=== PATIENT | male | born 2000 | race Caucasian/White ===

== ENCOUNTER 2018-07-22 23:15 | Emergency (ER) | payer OTHER ==
--- NOTE | 2018-07-23 00:04 | ED ---
Psych HPI - General Source: patient, RN notes reviewed, old records reviewed Mode of arrival: ambulatory <Krysta Kennedy - Last Filed: 07/23/18 03:59> <Beth Martinez P - Last Filed: 07/23/18 04:24> - General Chief Complaint: Psychiatric Symptoms Stated Complaint: Mental Health Time Seen by Provider: 07/22/18 23:20 - History of Present Illness Initial Comments: Patient is a 18-year-old male who presents emergency department today with his mother with chief complaint of inability to handle life. He reports that he is having a hard time dealing with the stress of his new job. Patient reports he feels like he has no hope for has no motivation for living. Here reports that each day we'll always been negative day. Patient's mother reports he has history of defiant disorder. Patient reports that he recently started a job at [employer]. He states that he seems to not be able to handle distress and minimal later shut down. He reports he isn't sleeping well. He denies any change in appetite. He reports a history of high blood pressure. He denies any active suicidal thoughts or intent. He denies any homicidal ideation or auditory or visual hallucinations. (Krysta Kennedy) - Related Data Home Medications Medication Instructions Recorded Confirmed Losartan [Cozaar] 25 mg PO DAILY 07/22/18 07/22/18 Allergies Allergy/AdvReac Type Severity Reaction Status Date / Time azithromycin [From Zithromax] Allergy Rash/Hives Verified 07/22/18 23:38 Review of Systems ROS Other: All systems not noted in ROS Statement are negative. <Krysta Kennedy - Last Filed: 07/23/18 03:59> ROS Other: All systems not noted in ROS Statement are negative. <Beth Martinez P - Last Filed: 07/23/18 04:24> ROS Statement: Those systems with pertinent positive or pertinent negative responses have been documented in the HPI. Past Medical History Past Medical History: Hypertension History of Any Multi-Drug Resistant Organisms: None Reported Past Surgical History: No Surgical Hx Reported Past Psychological History: Depression Smoking Status: Never smoker Past Alcohol Use History: None Reported Past Drug Use History: None Reported <Krysta Kennedy - Last Filed: 07/23/18 03:59> General Exam Limitations: no limitations General appearance: alert, in no apparent distress Head exam: Present: atraumatic Eye exam: Present: normal appearance, PERRL, EOMI. Absent: scleral icterus, conjunctival injection, periorbital swelling ENT exam: Present: normal exam, mucous membranes moist Neck exam: Present: normal inspection. Absent: tenderness, meningismus, lymphadenopathy Respiratory exam: Present: normal lung sounds bilaterally. Absent: respiratory distress, wheezes, rales, rhonchi, stridor Cardiovascular Exam: Present: regular rate, normal rhythm, normal heart sounds. Absent: systolic murmur, diastolic murmur, rubs, gallop, clicks GI/Abdominal exam: Present: soft, normal bowel sounds. Absent: distended, tenderness, guarding, rebound, rigid Extremities exam: Present: normal inspection, full ROM, normal capillary refill. Absent: tenderness, pedal edema, joint swelling, calf tenderness Back exam: Present: normal inspection Neurological exam: Present: alert, oriented X3, CN II-XII intact Psychiatric exam: Present: normal mood, depressed. Absent: normal affect (flat) Skin exam: Present: warm <Krysta Kennedy - Last Filed: 07/23/18 03:59> <Beth Martinez - Last Filed: 07/23/18 04:24> - General Exam Comments Initial Comments: Patient is a 18-year-old male. Alert and oriented. No acute distress. ( Krysta Kennedy) Vital Signs 07/22/18 07/23/18 23:18 03:28 Temperature 97.9 F 97.6 F Pulse Rate 87 78 Respiratory 16 18 Rate Blood Pressure 122/64 139/71 O2 Sat by Pulse 97 97 Oximetry Medical Decision Making <Krysta Kennedy - Last Filed: 07/23/18 03:59> <Beth Martinez - Last Filed: 07/23/18 04:24> - Medical Decision Making Patient is a 18-year-old male present to his pharmacy of his marked complaint of anxiety and depression. He denies any suicidal thoughts. Patient was seen by a EPS. They do feel the Patient is safe for discharge and given referral for outpatient treatment. Patient agrees to follow up with outpatient services and discussed return parameters. Patient's family Patient agreed treatment plan will comply. (Krysta Kennedy) I was available for consultation in the emergency department. The history and physical exam were done by the Midlevel Provider. Medical decision making was done by the Midlevel Provider. The Midlevel Provider did not contact me for this patient's care. I was not directly involved in this patient's care. (Beth Martinez) - Lab Data Lab Results 07/23/18 Range/Units 00:38 Urine Opiates Screen Not Detected (NotDetected) Ur Oxycodone Screen Not Detected (NotDetected) Urine Methadone Screen Not Detected (NotDetected) Ur Propoxyphene Screen Not Detected (NotDetected) Ur Barbiturates Screen Not Detected (NotDetected) U Tricyclic Antidepress Not Detected (NotDetected) Ur Phencyclidine Scrn Not Detected (NotDetected) Ur Amphetamines Screen Not Detected (NotDetected) U Methamphetamines Scrn Not Detected (NotDetected) U Benzodiazepines Scrn Not Detected (NotDetected) Urine Cocaine Screen Not Detected (NotDetected) U Marijuana (THC) Screen Not Detected (NotDetected) Disposition Is patient prescribed a controlled substance at d/c from ED?: No Time of Disposition: 03:13 <Krysta Kennedy - Last Filed: 07/23/18 03:59> <Beth Martinez - Last Filed: 07/23/18 04:24> Clinical Impression: Depression Disposition: HOME SELF-CARE Condition: Good Instructions: Depression (ED) Additional Instructions: Patient advised to follow-up with primary care provider. Follow-up with outpatient referrals. Return to emergency department if any alarming signs or symptoms occur. Referrals: Heather Taylor MD [Primary Care Provider] - 1-2 days
[2018-07-23 01:11] LABS: Amphetamine Screen,Urine Not Detected (NotDetected); Barbiturate Screen,Urine Not Detected (NotDetected); Benzodiazepines Screen,Urine Not Detected (NotDetected); Cocaine Screen,Urine Not Detected (NotDetected); Methadone Screen, Urine Not Detected (NotDetected); Opiate Screen,Urine Not Detected (NotDetected); Oxycodone Screen, Urine Not Detected (NotDetected); Phencyclidine Screen,Urine Not Detected (NotDetected); Tricyclic Antidepressant,Urine Not Detected (NotDetected); Urn Cannabinoid Scrn Not Detected (NotDetected)
[2018-07-23 03:29] VITALS: BP 139/71; PULSE 78; RESP 18; TEMP 97.6
== END 2018-07-23 03:29 | disposition home or self-care (01) ==
LOC: EC 23:15
DX: F32.9 Major depressive disorder, single episode, unspecified (principal); F43.9 Reaction to severe stress, unspecified; F41.9 Anxiety disorder, unspecified; I10 Essential (primary) hypertension; Z79.899 Other long term (current) drug therapy; Z88.1 Allergy status to other antibiotic agents
CPT/HCPCS: 80306; 82075; 99284

== ENCOUNTER 2020-08-11 21:19 | Emergency (ER) | payer OTHER ==
[2020-08-11 21:24] VITALS: TEMP 97.6
[2020-08-11] MEDS ORDERED: KETOROLAC 15 MG/ML 1 ML VIAL IVP STA (21:41)
[2020-08-11] MEDS ORDERED: SODIUM CHLORIDE 0.9% 1,000 ML IV STA (21:42)
--- NOTE | 2020-08-11 22:10 | XR ---
EXAMINATION TYPE: XR KUB DATE OF EXAM: 08/11/2020 COMPARISON: NONE HISTORY: Abdominal pain TECHNIQUE: 3 views FINDINGS: 3 views upright were obtained. There is no sign of intestinal obstruction or pneumoperitone um. Fecal pattern is normal. There are no pathologic calcifications over the kidneys. Lung bases are clear. IMPRESSION: Nonacute abdomen.
--- NOTE | 2020-08-11 22:21 | ED ---
General Adult HPI - General Chief complaint: Abdominal Pain Stated complaint: Abd Pain Time Seen by Provider: 08/11/20 21:31 Source: patient, RN notes reviewed Mode of arrival: ambulatory Limitations: no limitations - History of Present Illness Initial comments: 20-year-old male with a past medical history of hypertension, lactose intolerance presents to the emergency room for mid abdominal pain. Patient states this started yesterday. Patient states it is constant. It states it is a dull aching pain. Patient denies any right lower quadrant pain. Denies any nausea vomiting diarrhea. Denies any fevers or chills. He does report he drank some eggnog earlier this week and wonders if this is a flare of his lactose intolerance. Patient has no other complaints at this time including shortness of breath, chest pain, nausea or vomiting, headache, or visual changes. - Related Data Home Medications Medication Instructions Recorded Confirmed Losartan [Cozaar] 25 mg PO DAILY 07/22/18 07/22/18 Allergies Allergy/AdvReac Type Severity Reaction Status Date / Time azithromycin [From Zithromax] Allergy Rash/Hives Verified 07/22/18 23:38 Review of Systems ROS Statement: Those systems with pertinent positive or pertinent negative responses have been documented in the HPI. ROS Other: All systems not noted in ROS Statement are negative. Past Medical History Past Medical History: Hypertension Additional Past Medical History / Comment(s): lactose intolerance History of Any Multi-Drug Resistant Organisms: None Reported Past Surgical History: No Surgical Hx Reported Past Psychological History: Depression Smoking Status: Vaper Past Alcohol Use History: Occasional Past Drug Use History: None Reported General Exam Limitations: no limitations General appearance: alert, in no apparent distress Head exam: Present: atraumatic, normocephalic, normal inspection Eye exam: Present: normal appearance, PERRL, EOMI. Absent: scleral icterus, conjunctival injection, periorbital swelling ENT exam: Present: normal exam, mucous membranes moist Neck exam: Present: normal inspection, full ROM. Absent: tenderness, meningismus, lymphadenopathy Respiratory exam: Present: normal lung sounds bilaterally. Absent: respiratory distress, wheezes, rales, rhonchi, stridor Cardiovascular Exam: Present: regular rate, normal rhythm, normal heart sounds. Absent: systolic murmur, diastolic murmur, rubs, gallop, clicks GI/Abdominal exam: Present: soft, normal bowel sounds. Absent: distended, tenderness (No abdominal tenderness whatsoever), guarding, rebound, rigid Neurological exam: Present: alert Course Vital Signs 08/11/20 21:20 Temperature 97.6 F Pulse Rate 79 Respiratory 20 Rate Blood Pressure 142/84 O2 Sat by Pulse 97 Oximetry Medical Decision Making - Medical Decision Making Vitals are stable. CBC shows minimal leukocytosis. CMP is unremarkable. Urinalysis is negative. X-ray KUB shows a nonacute abdomen. Patient reevaluated, continues to have no abdominal tenderness whatsoever. Patient feels much better after Toradol. At this time I discussed this patient can be discharged home to follow up with primary care. However if he starts to have fevers or worsening abdominal pain he is to return to the emergency room. He is agreeable to this.I discussed this case with attending Dr. Liang who agrees with this assessment and treatment plan. - Lab Data Result diagrams: 08/11/20 22:19 08/11/20 22:19 Lab Results 08/11/20 08/11/20 08/11/20 Range/Units 22:19 22:19 22:19 WBC 12.4 H (3.8-10.6) k/uL RBC 5.33 (4.30-5.90) m/uL Hgb 16.7 (13.0-17.5) gm/dL Hct 48.6 (39.0-53.0) % MCV 91.3 (80.0-100.0) fL MCH 31.4 (25.0-35.0) pg MCHC 34.4 (31.0-37.0) g/dL RDW 12.5 (11.5-15.5) % Plt Count 348 (150-450) k/uL MPV 7.3 Neutrophils % 85 % Lymphocytes % 8 % Monocytes % 4 % Eosinophils % 2 % Basophils % 0 % Neutrophils # 10.5 H (1.3-7.7) k/uL Lymphocytes # 1.0 (1.0-4.8) k/uL Monocytes # 0.5 (0-1.0) k/uL Eosinophils # 0.3 (0-0.7) k/uL Basophils # 0.0 (0-0.2) k/uL Sodium 135 L (137-145) mmol/L Potassium 4.0 (3.5-5.1) mmol/L Chloride 103 (98-107) mmol/L Carbon Dioxide 25 (22-30) mmol/L Anion Gap 7 mmol/L BUN 6 L (9-20) mg/dL Creatinine 0.68 (0.66-1.25) mg/dL Est GFR (CKD-EPI)AfAm >90 (>60 ml/min/1.73 sqM) Est GFR (CKD-EPI)NonAf >90 (>60 ml/min/1.73 sqM) Glucose 125 H (74-99) mg/dL Calcium 9.3 (8.4-10.2) mg/dL Total Bilirubin 0.5 (0.2-1.3) mg/dL AST 22 (17-59) U/L ALT 24 (4-49) U/L Alkaline Phosphatase 80 (38-126) U/L Total Protein 7.1 (6.3-8.2) g/dL Albumin 4.0 (3.5-5.0) g/dL Amylase 53 (30-110) U/L Lipase 28 (23-300) U/L Urine Color Yellow Urine Appearance Clear (Clear) Urine pH 6.0 (5.0-8.0) Ur Specific [place] 1.029 (1.001-1.035) Urine Protein Trace H (Negative) Urine Glucose (UA) Negative (Negative) Urine Ketones Negative (Negative) Urine Blood Negative (Negative) Urine Nitrite Negative (Negative) Urine Bilirubin Negative (Negative) Urine Urobilinogen 2.0 (<2.0) mg/dL Ur Leukocyte Esterase Negative (Negative) Disposition Clinical Impression: Abdominal pain Disposition: HOME SELF-CARE Condition: Good Instructions (If sedation given, give patient instructions): Abdominal Pain (ED) Additional Instructions: Please take Motrin and Tylenol for pain. Please follow-up with your doctor in one to 2 days. Return to the emergency room for any worsening symptoms such as worsening pain or fevers. Is patient prescribed a controlled substance at d/c from ED?: No Referrals: Heather Taylor MD [Primary Care Provider] - 1-2 days Time of Disposition: 23:00
[2020-08-11 22:34] LABS: Appearance,Urine Clear (Clear); Bilirubin,Urine Negative (Negative); Blood,Urine Negative (Negative); Color,Urine Yellow; Glucose,Urine (UA) Negative (Negative); Ketones,Urine Negative (Negative); Leukocyte Esterase,Urine Negative (Negative); Nitrite,Urine Negative (Negative); Protein,Urine Trace (Negative); Specific Gravity,Urine 1.029 (1.001-1.035)
[2020-08-11 22:35] LABS: Basophils % (A) 0 %; Eosinophils # (A) 0.3 k/uL (0-0.7); Eosinophils % (A) 2 %; HCT 48.6 % (39.0-53.0); HGB 16.7 gm/dL (13.0-17.5); Lymphocytes % (A) 8 %; MCH 31.4 pg (25.0-35.0); MCHC 34.4 g/dL (31.0-37.0); MCV 91.3 fL (80.0-100.0); Mean Platelet Volume 7.3; Monocytes # (A) 0.5 k/uL (0-1.0); Monocytes % (A) 4 %; Neutrophils # (A) 10.5 k/uL (1.3-7.7); Neutrophils % (A) 85 %; Platelet Count 348 k/uL (150-450); RBC 5.33 m/uL (4.30-5.90); RDW 12.5 % (11.5-15.5); WBC 12.4 k/uL (3.8-10.6)
[2020-08-11 22:45] LABS: ALT 24 U/L (4-49); AST 22 U/L (17-59); African American GFR (CKD) >90 (>60 ml/min/1.73 sqM); Alkaline Phosphatase 80 U/L (38-126); Amylase 53 U/L (30-110); Anion Gap 7 mmol/L; Blood Urea Nitrogen 6 mg/dL (9-20); Calcium 9.3 mg/dL (8.4-10.2); Carbon Dioxide 25 mmol/L (22-30); Chloride 103 mmol/L (98-107); Glucose 125 mg/dL (74-99); Lipase 28 U/L (23-300); Non-African American GFR(CKD) >90 (>60 ml/min/1.73 sqM); Sodium 135 mmol/L (137-145); Total Bilirubin 0.5 mg/dL (0.2-1.3); Total Protein 7.1 g/dL (6.3-8.2)
[2020-08-11 23:14] VITALS: BP 141/72; PULSE 82; RESP 18
== END 2020-08-11 23:13 | disposition home or self-care (01) ==
LOC: EC 21:19
DX: R10.9 Unspecified abdominal pain (principal); D72.829 Elevated white blood cell count, unspecified; I10 Essential (primary) hypertension; F17.290 Nicotine dependence, other tobacco product, uncomplicated; Z79.899 Other long term (current) drug therapy; Z88.1 Allergy status to other antibiotic agents
CPT/HCPCS: 36415; 80053; 82150; 83690; 85025; 81003; 74018; 99284; 96374; 96361; J1885